=== PATIENT | male | born 1970 | race African-American/Black ===

== ENCOUNTER 2019-06-16 10:58 | Emergency (ER) | payer OTHER ==
[2019-06-16 11:09] VITALS: BP 162/93; PULSE 94; RESP 18; TEMP 98.4
--- NOTE | 2019-06-16 11:22 | ED ---
General Adult HPI - General Chief complaint: Skin/Abscess/Foreign Body Stated complaint: bump on rt side Time Seen by Provider: 06/16/19 11:11 Source: patient, RN notes reviewed, old records reviewed Mode of arrival: ambulatory Limitations: no limitations - History of Present Illness Initial comments: 49-year-old male presenting for evaluation of pain and swelling in his right side and flank. He first noticed some pain approximately 2 days ago. He noticed some redness and bumps associated with the pain. He denies any fever or chills. He denies chest pain or dyspnea. He denies hematuria. No other symptoms reported. He states the pain is moderate. No chronic medical conditions. - Related Data Previous Rx's Medication Instructions Recorded Ibuprofen [Motrin] 600 mg PO Q8HR PRN #24 tab 06/16/19 valACYclovir HCL [Valtrex] 1,000 mg PO Q8HR #21 tab 06/16/19 Allergies Allergy/AdvReac Type Severity Reaction Status Date / Time No Known Allergies Allergy Verified 06/16/19 11:08 Review of Systems ROS Statement: Those systems with pertinent positive or pertinent negative responses have been documented in the HPI. ROS Other: All systems not noted in ROS Statement are negative. Past Medical History Past Medical History: No Reported History Additional Past Surgical History / Comment(s): nasal Past Psychological History: No Psychological Hx Reported Smoking Status: Never smoker Past Alcohol Use History: Occasional Past Drug Use History: Marijuana General Exam Limitations: no limitations General appearance: alert, in no apparent distress Head exam: Present: atraumatic, normocephalic Eye exam: Present: normal appearance, PERRL Neck exam: Present: normal inspection Respiratory exam: Present: normal lung sounds bilaterally. Absent: respiratory distress, wheezes Cardiovascular Exam: Present: regular rate, normal rhythm GI/Abdominal exam: Present: soft. Absent: distended, tenderness Back exam: Present: other (Herpetic rash dermatomal distribution, right flank onto the anterior abdominal wall on the right side only. There are 3 distinct clusters of herpetic lesions.) Neurological exam: Present: alert, oriented X3 Psychiatric exam: Present: normal affect, normal mood Skin exam: Present: vesicles, other (Herpetic lesion, right flank To Right Anterior Abdominal Wall Consistent with Herpes Zoster) Course Vital Signs 06/16/19 11:06 Temperature 98.4 F Pulse Rate 94 Respiratory 18 Rate Blood Pressure 162/93 O2 Sat by Pulse 98 Oximetry Medical Decision Making - Medical Decision Making 49-year-old male presenting with 2 days of redness, pain in the right flank and lateral abdominal wall. He has rash consistent with herpetic zoster. He is prescribed Motrin and valacyclovir. He will return with any worsening or changing symptoms, follow-up with primary care physician. Disposition Clinical Impression: Herpes zoster Disposition: HOME SELF-CARE Condition: Good Instructions (If sedation given, give patient instructions): Shingles (ED) Prescriptions: Ibuprofen [Motrin] 600 mg PO Q8HR PRN #24 tab PRN Reason: Pain valACYclovir HCL [Valtrex] 1,000 mg PO Q8HR #21 tab Is patient prescribed a controlled substance at d/c from ED?: No Referrals: None,Stated [Primary Care Provider] - 1-2 days Gurinder Cabello [STAFF PHYSICIAN] - 1-2 days Time of Disposition: 11:21
== END 2019-06-16 11:51 | disposition home or self-care (01) ==
LOC: EC 10:58
DX: B02.9 Zoster without complications (principal)
CPT/HCPCS: 99283

== ENCOUNTER 2019-11-23 11:17 | Emergency (ER) | payer OTHER ==
[2019-11-23 11:33] VITALS: BP 173/91; PULSE 60; RESP 18; TEMP 98.4
[2019-11-23] MEDS ORDERED: FLUORESCEIN STRIPS 1 MG STRIP LEFT EYE ONE (11:42)
[2019-11-23] MEDS ORDERED: PROPARACAINE 0.5% OPHTH DROPS 15 ML BTL LEFT EYE STA (11:42)
--- NOTE | 2019-11-23 11:48 | ED ---
ENT HPI - General Chief complaint: ENT Stated complaint: lt eye irritation Time Seen by Provider: 11/23/19 11:35 Source: patient Mode of arrival: ambulatory Limitations: no limitations - History of Present Illness Initial comments: 49-year-old male presenting today for chief complaint of left eye irritation. Patient states that the he felt like he had an eyelash poking the outer corner of his left eye. Denies eye redness headaches nausea vomiting. Patient denies any section photophobia. He states he noticed a slight raised area of the outer left lower lid. Patient appears well nontoxic in no acute distress. Wears glasses. - Related Data Previous Rx's Medication Instructions Recorded Ibuprofen [Motrin] 600 mg PO Q8HR PRN #24 tab 06/16/19 valACYclovir HCL [Valtrex] 1,000 mg PO Q8HR #21 tab 06/16/19 Erythromycin Ophth Oint [Romycin 1 applic LEFT EYE QID 5 Days #1 11/23/19 Ophth Oint] tube Allergies Allergy/AdvReac Type Severity Reaction Status Date / Time No Known Allergies Allergy Verified 11/23/19 11:33 Review of Systems ROS Statement: Those systems with pertinent positive or pertinent negative responses have been documented in the HPI. ROS Other: All systems not noted in ROS Statement are negative. Past Medical History Past Medical History: No Reported History Additional Past Surgical History / Comment(s): nasal Past Psychological History: No Psychological Hx Reported Smoking Status: Never smoker Past Alcohol Use History: Rare Past Drug Use History: Marijuana General Exam - General Exam Comments Initial Comments: General: The patient is awake and alert, in no distress Eye: +3 mm pupils are equal, round and reactive to light, extra-ocular movements are intact. No nystagmus. There is normal conjunctiva bilaterally. No signs of icterus. There is raised red lesion left outer lower lid. No eyelashes appear inverted. THere is no photophobia. Ears, nose, mouth and throat: There are moist mucous membranes and no oral lesions. Musculoskeletal: Normal ROM, no tenderness. Strength 5/5. Sensation intact. Radial pulses equal bilaterally 2+. Neurological: A&O x 3. CN II-XII intact, There are no obvious motor or sensory deficits. Coordination appears grossly intact. Speech is normal. Skin: Skin is warm and dry and no rashes or lesions are noted. Psychiatric: Cooperative, appropriate mood & affect, normal judgment. Limitations: no limitations Course Vital Signs 11/23/19 11:30 Temperature 98.4 F Pulse Rate 60 Respiratory 18 Rate Blood Pressure 173/91 O2 Sat by Pulse 98 Oximetry Medical Decision Making - Medical Decision Making 49yo male presenting for cc of left lid discomfort. No fluorescein uptake no inverted eye lashes. I feel this is a hordeolum there is no evidence of a cellulitic process at this time. Patient will be discharged with topical antibiotics warm compresses and he is to follow-up with primary care provider if thing symptoms worsen he is to return to the emergency department Disposition Clinical Impression: Hordeolum Disposition: HOME SELF-CARE Condition: Good Instructions (If sedation given, give patient instructions): Tal (ED) Additional Instructions: Please use medication as discussed. Please follow-up with PCP in 1-2 days. Please return to emergency room if the symptoms increase or worsen or for any other concerns. Prescriptions: Erythromycin Ophth Oint [Romycin Ophth Oint] 1 applic LEFT EYE QID 5 Days #1 tube Is patient prescribed a controlled substance at d/c from ED?: No Referrals: None,Stated [Primary Care Provider] - 1-2 days Tony Weaver MD [STAFF PHYSICIAN] - 1-2 days Time of Disposition: 11:47
== END 2019-11-23 12:05 | disposition home or self-care (01) ==
LOC: EC 11:17
DX: H00.015 Hordeolum externum left lower eyelid (principal)
CPT/HCPCS: 99283

== ENCOUNTER 2021-05-21 10:48 | Emergency (ER) | payer OTHER ==
[2021-05-21 10:56] VITALS: RESP 18; TEMP 97.4
--- NOTE | 2021-05-21 11:13 | ED ---
Abdominal Pain HPI - General Chief Complaint: Abdominal Pain Stated Complaint: Abd Pain Time Seen by Provider: 05/21/21 11:06 Source: patient Mode of arrival: ambulatory Limitations: no limitations - History of Present Illness Initial Comments: Patient is a 21-year-old male who presents to the emergency department with the chief complaint of abdominal pain. Patient states he had frozen lives in [facility] yesterday and after experience generalized abdominal pain with one episode of vomiting and one episode of dry heaving. Patient reports he feels much better now with occasional stomach cramping. He has not vomited today. He is not nauseous. Patient presents for a work note so he go back to work today. Patient has no other concerns at this time including fever, chills, headache, shortness of breath, cough, chest pain, diarrhea, and burning with urination. - Related Data Previous Rx's Medication Instructions Recorded Ibuprofen [Motrin] 600 mg PO Q8HR PRN #24 tab 06/16/19 valACYclovir HCL [Valtrex] 1,000 mg PO Q8HR #21 tab 06/16/19 Erythromycin Ophth Oint [Romycin 1 applic LEFT EYE QID 5 Days #1 11/23/19 Ophth Oint] tube Ondansetron Odt [Zofran Odt] 4 mg PO Q8HR PRN #9 tab 05/21/21 Allergies Allergy/AdvReac Type Severity Reaction Status Date / Time No Known Allergies Allergy Verified 05/21/21 10:56 Review of Systems ROS Statement: Those systems with pertinent positive or pertinent negative responses have been documented in the HPI. ROS Other: All systems not noted in ROS Statement are negative. Past Medical History Past Medical History: No Reported History Additional Past Surgical History / Comment(s): nasal Past Psychological History: No Psychological Hx Reported Smoking Status: Never smoker Past Alcohol Use History: Rare Past Drug Use History: Marijuana General Exam Limitations: no limitations General appearance: alert, in no apparent distress Head exam: Present: atraumatic, normocephalic, normal inspection Eye exam: Present: normal appearance, PERRL, EOMI. Absent: scleral icterus, conjunctival injection, periorbital swelling ENT exam: Present: normal exam, mucous membranes moist Respiratory exam: Present: normal lung sounds bilaterally. Absent: respiratory distress, wheezes, rales, rhonchi, stridor Cardiovascular Exam: Present: regular rate, normal rhythm, normal heart sounds. Absent: systolic murmur, diastolic murmur, rubs, gallop, clicks GI/Abdominal exam: Present: soft, normal bowel sounds. Absent: distended, tenderness, guarding, rebound, rigid Back exam: Present: normal inspection. Absent: CVA tenderness (R), CVA tenderness (L) Neurological exam: Present: alert, oriented X3, CN II-XII intact Psychiatric exam: Present: normal affect, normal mood Skin exam: Present: warm, dry, intact, normal color. Absent: rash Course Vital Signs 05/21/21 10:51 Temperature 97.4 F L Pulse Rate 105 H Respiratory 18 Rate Blood Pressure 161/96 O2 Sat by Pulse 99 Oximetry Medical Decision Making - Medical Decision Making This is a 51-year-old who is seeking a work note so he can return to work today. Patient had abdominal pain with one episode of vomiting yesterday but feels much better today. He is afebrile. The abdomen is soft and nontender. At this time due to patient's very minimal symptoms, lack of fever, and normal abdominal exam, laboratory studies and imaging are not necessary. Patient and I discussed this and he confirms that he is here to make sure he can return to work. I did give him a work note which medically cleared him today. I prescribed him Zofran for intermittent nausea. Return parameters discussed. Patient verbalizes understanding and is agreeable to plan. Dr. Callahan is my attending. Disposition Clinical Impression: Nausea and vomiting, Abdominal pain Disposition: HOME SELF-CARE Condition: Good Instructions (If sedation given, give patient instructions): Abdominal Pain (ED) Additional Instructions: Please take Zofran as directed. Follow-up with primary care provider in one to 2 days. Return to the emergency department if you experience new, concerning, or worsening symptoms. Prescriptions: Ondansetron Odt [Zofran Odt] 4 mg PO Q8HR PRN #9 tab PRN Reason: Nausea Is patient prescribed a controlled substance at d/c from ED?: No Referrals: None,Stated [Primary Care Provider] - 1-2 days Time of Disposition: 11:13
[2021-05-21 11:41] VITALS: BP 148/99; PULSE 78
== END 2021-05-21 11:40 | disposition home or self-care (01) ==
LOC: EC 10:48
DX: R11.2 Nausea with vomiting, unspecified (principal); R10.84 Generalized abdominal pain
CPT/HCPCS: 99283

== ENCOUNTER 2023-03-04 18:28 | Emergency (ER) | payer OTHER ==
[2023-03-04 19:16] VITALS: BP 149/97; PULSE 118; RESP 18; TEMP 99.2
[2023-03-04] MEDS ORDERED: ACETAMINOPHEN TAB 325 MG TAB PO STA (20:21)
--- NOTE | 2023-03-04 20:24 | ED ---
Fever HPI - General Source: patient, family, RN notes reviewed Mode of arrival: ambulatory Limitations: no limitations <Lakshmi Madden - Last Filed: 03/04/23 20:23> - General Source: RN notes reviewed, old records reviewed Mode of arrival: ambulatory Limitations: no limitations - History of Present Illness MD Complaint: fever, weakness, other (Cough) -: hour(s) Associated Symptoms: chills, myalgias, chest pain Treatments Prior to Arrival: none <Franco Bird - Last Filed: 03/12/23 16:18> - General Chief Complaint: Fever Stated Complaint: kidney issues Time Seen by Provider: 03/04/23 20:23 - History of Present Illness Initial Comments: Patient is a 52-year-old male presented ER with chief complaint of fever. Patient states he started having feeling well on Sunday. Patient is endorsing nausea and vomiting. He is also reporting back pain. No history of kidney stones. (Lakshmi Madden) This is a 52-year-old male to the ER today for evaluation fevers nausea vomiting some back pain occasional cough but no other complaints, no travel history sick contacts. (Franco Bird) - Related Data Previous Rx's Medication Instructions Recorded Benzonatate [Tessalon Perles] 100 mg PO TID PRN #15 capsule 03/05/23 Ondansetron Odt [Zofran ODT] 4 mg PO Q8HR PRN #10 tab 03/05/23 Allergies Allergy/AdvReac Type Severity Reaction Status Date / Time No Known Allergies Allergy Verified 03/08/23 20:34 Review of Systems ROS Other: All systems not noted in ROS Statement are negative. <Lakshmi Madden - Last Filed: 03/04/23 20:23> ROS Other: All systems not noted in ROS Statement are negative. <Franco Bird - Last Filed: 03/12/23 16:18> ROS Statement: Those systems with pertinent positive or pertinent negative responses have been documented in the HPI. Past Medical History Past Medical History: No Reported History Additional Past Surgical History / Comment(s): nasal Past Psychological History: No Psychological Hx Reported Smoking Status: Never smoker Past Alcohol Use History: Rare Past Drug Use History: Marijuana <Lakshmi Madden - Last Filed: 03/04/23 20:23> General Exam Limitations: no limitations <Lakshmi Madden - Last Filed: 03/04/23 20:23> General appearance: alert, in no apparent distress Head exam: Present: atraumatic, normocephalic, normal inspection Eye exam: Present: normal appearance, PERRL, EOMI. Absent: scleral icterus, conjunctival injection, periorbital swelling ENT exam: Present: normal exam, mucous membranes moist Neck exam: Present: normal inspection. Absent: tenderness, meningismus, lymphadenopathy Respiratory exam: Present: normal lung sounds bilaterally. Absent: respiratory distress, wheezes, rales, rhonchi, stridor Cardiovascular Exam: Present: regular rate, normal rhythm, normal heart sounds. Absent: systolic murmur, diastolic murmur, rubs, gallop, clicks GI/Abdominal exam: Present: soft, normal bowel sounds. Absent: distended, tenderness, guarding, rebound, rigid Extremities exam: Present: normal inspection, full ROM, normal capillary refill. Absent: tenderness, pedal edema, joint swelling, calf tenderness Back exam: Present: normal inspection Neurological exam: Present: alert, oriented X3, CN II-XII intact Psychiatric exam: Present: normal affect, normal mood Skin exam: Present: warm, dry, intact, normal color. Absent: rash <Franco Bird - Last Filed: 03/12/23 16:18> - General Exam Comments Initial Comments: Visual Physical Exam Vital signs reviewed General: Well-appearing, nontoxic, no acute distress. Head: Normocephalic, atraumatic Eyes: PERRLA, EOMI ENT: Airway patent Chest: Nonlabored breathing Skin: No visual rash, normal skin tone Neuro: Alert and oriented 3 Musculoskeletal: No gross abnormalities (Lakshmi Madden) Course <Franco Bird - Last Filed: 03/12/23 16:18> Vital Signs 03/04/23 18:52 Temperature 99.2 F Pulse Rate 118 H Respiratory 18 Rate Blood Pressure 149/97 O2 Sat by Pulse 98 Oximetry - Reevaluation(s) Reevaluation #1: Medical record is reviewed (Franco Bird) Reevaluation #2: Patient symptoms are improved (Franco Bird) Reevaluation #3: Patient informed results and questions answered (Franco Bird) Reevaluation #4: Was pt. sent in by a medical professional or institution ([facility], [employer], urgent care, hospital, or fpc...) When possible be specific @ -no Did you speak to anyone other than the patient for history (EMS, parent, family, police, friend...)? What history was obtained from this source @ -no Did you review nursing and triage notes (agree or disagree)? Why? @ -agree Are old charts reviewed (outside hosp., previous admission, EMS record, old EKG, old radiological studies, urgent care reports/EKG's, fpc records)? Report findings @ -yes Differential Diagnosis (chest pain, altered mental status, abdominal pain women, abdominal pain men, vaginal bleeding, weakness, fever, dyspnea, syncope, headache, dizziness, GI bleed, back pain, seizure, CVA, palpatations, mental health, musculoskeletal)? @ -prior EKG interpreted by me (3pts min.). @ -no X-rays interpreted by me (1pt min.). @ -yes negative for acute disease CT interpreted by me (1pt min.). @ -no U/S interpreted by me (1pt. min.). @ -no What testing was considered but not performed or refused? (CT, X-rays, U/S, labs)? Why? @ -none What meds were considered but not given or refused? Why? @ -none Did you discuss the management of the patient with other professionals (professionals i.e. [facility], [employer], lab, RT, psych nurse, high school social studies teacher, spike maker, teacher, community cultural development officer, casework supervisor)? Give summary @ -no Was smoking cessation discussed for >3mins.? @ -no Were there social determinants of health that impacted care today? How? (Homelessness, low income, unemployed, alcoholism, drug addiction, transportation, low edu. Level, literacy, decrease access to med. care, retirement, rehab)? @ -none Was there de-escalation of care discussed even if they declined (Discuss DNR or withdrawal of care, Hospice)? DNR status @ -no What co-morbidities impacted this encounter? (DM, HTN, Smoking, COPD, CAD, Cancer, CVA, ARF, Chemo, Hep., AIDS, mental health diagnosis, sleep apnea, morbid obesity)? @ -none Was patient admitted / discharged? Hospital course, mention meds given and route, prescriptions, significant lab abnormalities, going to OR and other pertinent info. @ - 52 male to the emergency department for evaluation of significant chest pain back pain occasional cough. Patient does have RSV. No acute findings feels well can be discharged home Discharge Was critical care preformed (if so, how long)? @ -no Undiagnosed new problem with uncertain prognosis? @ -no Drug Therapy requiring intensive monitoring for toxicity (Heparin, Nitro, Insulin, Cardizem)? @ -no Were any procedures done? @ -no Diagnosis/symptom? @ -Chest pain RSV fever Acute, or Chronic, or Acute on Chronic? @ -Acute Uncomplicated (without systemic symptoms) or Complicated (systemic symptoms)? @ -Complicated Side effects of treatment? @ -no Exacerbation, Progression, or Severe Exacerbation? @ -exacerbation Poses a threat to life or bodily function? How? (Chest pain, [place], [place], pneumonia, PE, COPD, DKA, ARF, appy, cholecystitis, CVA, Diverticulitis, Homicidal, Suicid al, threat to staff... and all critical care pts) @ -no (Franco Bird) Reevaluation #5: Differential Fever: Pneumonia, viral URI, endocarditis, myocarditis, pericarditis, otitis, sinusitis, peritonsillar Abscess, retropharyngeal Abscess, epiglottitis, peritonitis, appendicitis, [place] cystitis, diverticulitis, hepatitis, colitis, UTI, PID, TOA, pyelonephritis, prostatitis, epididymitis, meningitis, encephalitis, pulmonary embolism, CVA, thyroid storm, pancreatitis, adrenal crisis, cavernous sinus thrombosis, this is not meant to be an all-inclusive list. (Franco Bird) Medical Decision Making <Lakshmi Madden - Last Filed: 03/04/23 20:23> - Lab Data Result diagrams: 03/04/23 21:26 03/04/23 21:26 - Radiology Data Radiology results: report reviewed (Chest x-rays negative for acute disease), image reviewed <Franco Bird - Last Filed: 03/12/23 16:18> - Medical Decision Making I performed the quick note portion of the exam. Electronically signed by Lakshmi Madden PA-C (Lakshmi Madden) 52 male to the emergency department for evaluation of significant chest pain back pain occasional cough. Patient does have RSV. No acute findings feels well can be discharged home (Franco Bird) - Lab Data Lab Results 03/04/23 03/04/23 03/04/23 Range/Units 21:26 21:26 21:26 WBC 15.9 H (3.8-10.6) k/uL RBC 5.69 (4.30-5.90) m/uL Hgb 18.0 H (13.0-17.5) gm/dL Hct 51.1 (39.0-53.0) % MCV 89.8 (80.0-100.0) fL MCH 31.7 (25.0-35.0) pg MCHC 35.3 (31.0-37.0) g/dL RDW 12.2 (11.5-15.5) % Plt Count 252 (150-450) k/uL MPV 10.0 Sodium 141 (137-145) mmol/L Potassium 3.7 (3.5-5.1) mmol/L Chloride 97 L (98-107) mmol/L Carbon Dioxide 26 (22-30) mmol/L Anion Gap 18 mmol/L BUN 34 H (9-20) mg/dL Creatinine 1.58 H (0.66-1.25) mg/dL Est GFR (CKD-EPI)AfAm 58 (>60 ml/min/1.73 sqM) Est GFR (CKD-EPI)NonAf 50 (>60 ml/min/1.73 sqM) Glucose 146 H (74-99) mg/dL Calcium 10.0 (8.4-10.2) mg/dL Total Bilirubin 1.7 H (0.2-1.3) mg/dL AST 36 (17-59) U/L ALT 30 (4-49) U/L Alkaline Phosphatase 103 (38-126) U/L Total Protein 10.0 H (6.3-8.2) g/dL Albumin 5.3 H (3.5-5.0) g/dL Influenza Type A (PCR) Not Detected (Not Detectd) Influenza Type B (PCR) Not Detected (Not Detectd) RSV (PCR) Detected A (Not Detectd) SARS-CoV-2 (PCR) Not Detected (Not Detectd) Disposition <Lakshmi Madden - Last Filed: 03/04/23 20:23> Is patient prescribed a controlled substance at d/c from ED?: No Time of Disposition: 00:35 <Franco Bird - Last Filed: 03/12/23 16:18> Clinical Impression: Viral infection, RSV (acute bronchiolitis due to respiratory syncytial virus), Fever, Nausea & vomiting Disposition: HOME SELF-CARE Condition: Good Instructions (If sedation given, give patient instructions): Respiratory Syncytial Virus (ED), Fever in Adults (ED) Prescriptions: Benzonatate [Tessalon Perles] 100 mg PO TID PRN #15 capsule PRN Reason: Cough Ondansetron Odt [Zofran ODT] 4 mg PO Q8HR PRN #10 tab PRN Reason: nausea/vomiting Referrals: None,Stated [Primary Care Provider] - 1-2 days
--- NOTE | 2023-03-04 21:09 | XR ---
EXAMINATION TYPE: XR chest 2V DATE OF EXAM: 03/04/2023 COMPARISON: None INDICATION: Cough TECHNIQUE: Frontal and lateral views of the chest are obtained. FINDINGS: The heart size is normal. The pulmonary vasculature is normal. The lungs are clear. IMPRESSION: 1. No acute pulmonary process.
[2023-03-04 21:42] LABS: HCT 51.1 % (39.0-53.0); MCH 31.7 pg (25.0-35.0); MCHC 35.3 g/dL (31.0-37.0); MCV 89.8 fL (80.0-100.0); Platelet Count 252 k/uL (150-450); RBC 5.69 m/uL (4.30-5.90); RDW 12.2 % (11.5-15.5); WBC 15.9 k/uL (3.8-10.6)
[2023-03-04 22:03] LABS: ALT 30 U/L (4-49); AST 36 U/L (17-59); African American GFR (CKD) 58 (>60 ml/min/1.73 sqM); Albumin 5.3 g/dL (3.5-5.0); Alkaline Phosphatase 103 U/L (38-126); Anion Gap 18 mmol/L; Blood Urea Nitrogen 34 mg/dL (9-20); Carbon Dioxide 26 mmol/L (22-30); Chloride 97 mmol/L (98-107); Glucose 146 mg/dL (74-99); Non-African American GFR(CKD) 50 (>60 ml/min/1.73 sqM); Potassium 3.7 mmol/L (3.5-5.1); Sodium 141 mmol/L (137-145); Total Bilirubin 1.7 mg/dL (0.2-1.3)
[2023-03-05] MEDS ORDERED: IBUPROFEN 600 MG STARTER PACK 4 TAB BTL PO STA (00:42)
[2023-03-05] MEDS ORDERED: ONDANSETRON 4 MG ODT STARTER PACK 2 TAB BTL PO STA (00:42)
[2023-03-05] MEDS ORDERED: IBUPROFEN 600 MG TAB PO STA (00:42)
[2023-03-05] MEDS ORDERED: dexAMETHasone 2 MG TAB PO STA (00:42)
[2023-03-05] MEDS ORDERED: BENZONATATE 100 MG CAP PO STA (00:42)
[2023-03-05] MEDS ORDERED: ONDANSETRON ODT 4 MG TAB PO STA (00:42)
== END 2023-03-05 01:13 | disposition home or self-care (01) ==
LOC: EC 18:28
DX: J21.0 Acute bronchiolitis due to respiratory syncytial virus (principal); F12.90 Cannabis use, unspecified, uncomplicated; Z20.822 Contact with and (suspected) exposure to COVID-19
CPT/HCPCS: 36415; 80053; 85027; 87636; 71046; 99284; J8540; S0119

== ENCOUNTER 2023-03-08 20:22 | Emergency (ER) | payer OTHER ==
[2023-03-08 20:53] VITALS: BP 186/98; PULSE 79; RESP 18; TEMP 98.4
--- NOTE | 2023-03-08 21:16 | XR ---
EXAMINATION TYPE: XR chest 2V DATE OF EXAM: 03/08/2023 9:12 PM CLINICAL INDICATION:Male, 52 years old with history of R/O PNA; [facility] COMPARISON: Chest radiograph 03/04/2023 TECHNIQUE: XR chest 2V Frontal and lateral views of the chest. FINDINGS: Lungs/Pleura: There is no evidence of pleural effusion, focal consolidation, or pneumothorax. Pulmonary vascularity: Unremarkable. Heart/mediastinum: Cardiomediastinal silhouette is unremarkable. Musculoskeletal: No acute osseous pathology. IMPRESSION: No acute cardiopulmonary disease/process.
[2023-03-08] MEDS ORDERED: SODIUM CHLORIDE 0.9% 1,000 ML IV STA (21:23)
[2023-03-08 22:21] LABS: Basophils # (A) 0.1 k/uL (0-0.2); Basophils % (A) 1 %; Eosinophils # (A) 0.2 k/uL (0-0.7); Eosinophils % (A) 2 %; HGB 15.1 gm/dL (13.0-17.5); Lymphocytes # (A) 2.4 k/uL (1.0-4.8); Lymphocytes % (A) 23 %; MCH 31.1 pg (25.0-35.0); MCHC 34.4 g/dL (31.0-37.0); MCV 90.4 fL (80.0-100.0); Mean Platelet Volume 10.1; Monocytes # (A) 0.8 k/uL (0-1.0); Monocytes % (A) 8 %; Neutrophils # (A) 6.6 k/uL (1.3-7.7); Neutrophils % (A) 64 %; Platelet Count 272 k/uL (150-450); RBC 4.87 m/uL (4.30-5.90); RDW 12.4 % (11.5-15.5); WBC 10.3 k/uL (3.8-10.6)
--- NOTE | 2023-03-08 22:23 | ED ---
General Adult HPI - General Chief complaint: Upper Respiratory Infection Stated complaint: Revisit - RSV, Dizziness Time Seen by Provider: 03/08/23 21:01 Source: patient Mode of arrival: ambulatory Limitations: no limitations - History of Present Illness Initial comments: 52-year-old male presenting to the ED with a chief complaint of near syncope. Patient notes had RSV 2 weeks ago. At this point, states symptoms have mostly resolved however today notes 2 episodes where he almost passed out. States that today after standing up too quickly felt as if he was going to pass out. States he sat down and this shortly relieved. Chest pain or shortness of breath. No other complaints. - Related Data Previous Rx's Medication Instructions Recorded Benzonatate [Tessalon Perles] 100 mg PO TID PRN #15 capsule 03/05/23 Ondansetron Odt [Zofran ODT] 4 mg PO Q8HR PRN #10 tab 03/05/23 Allergies Allergy/AdvReac Type Severity Reaction Status Date / Time No Known Allergies Allergy Verified 03/08/23 20:34 Review of Systems ROS Statement: Those systems with pertinent positive or pertinent negative responses have been documented in the HPI. ROS Other: All systems not noted in ROS Statement are negative. Past Medical History Past Medical History: No Reported History Additional Past Surgical History / Comment(s): nasal Past Psychological History: No Psychological Hx Reported Smoking Status: Never smoker Past Alcohol Use History: Rare Past Drug Use History: Marijuana General Exam Limitations: no limitations General appearance: alert, in no apparent distress Eye exam: Present: normal appearance Neck exam: Present: normal inspection Respiratory exam: Present: normal lung sounds bilaterally Cardiovascular Exam: Present: regular rate, normal rhythm GI/Abdominal exam: Present: soft Neurological exam: Present: alert, oriented X3 Skin exam: Present: warm, dry Course Vital Signs 03/08/23 20:31 Temperature 98.4 F Pulse Rate 79 Respiratory 18 Rate Blood Pressure 186/98 O2 Sat by Pulse 98 Oximetry Medical Decision Making - Medical Decision Making Was pt. sent in by a medical professional or institution (Dr. PA, MEDICAL RECORDS RECEPTIONIST, urgent care, hospital, or senior living...) When possible be specific @ -No Did you speak to anyone other than the patient for history (EMS, parent, family, police, friend...)? What history was obtained from this source @ -No Did you review nursing and triage notes (agree or disagree)? Why? @ -I reviewed and agree with nursing and triage notes Were old charts reviewed (outside hosp., previous admission, EMS record, old EKG, old radiological studies, urgent care reports/EKG's, senior living records)? Report findings @ -No old charts were reviewed Differential Diagnosis (chest pain, altered mental status, abdominal pain women, abdominal pain men, vaginal bleeding, weakness, fever, dyspnea, syncope, headache, dizziness, GI bleed, back pain, seizure, CVA, palpatations, mental health, musculoskeletal)? @ -Differential Dizziness: Benign paroxysmal positional Vertigo, Menieres disease, otitis media, acoustic neuroma, vertebrobasilar insufficiency, cerebellar stroke, encephalitis, hypovolemic, arrhythmia, coronary artery syndrome, anemia, this is not meant to be an all-inclusive list EKG interpreted by me (3pts min.). @ -As above X-rays interpreted by me (1pt min.). @ -Chest x-ray interpreted by me show no evidence of acute finding. CT interpreted by me (1pt min.). @ -None done U/S interpreted by me (1pt. min.). @ -None done What testing was considered but not performed or refused? (CT, X-rays, U/S, labs)? Why? @ -None What meds were considered but not given or refused? Why? @ -None Did you discuss the management of the patient with other professionals (professionals i.e. , PA, MEDICAL RECORDS RECEPTIONIST, lab, RT, psych nurse, certified social workers in health care, head field hockey coach, teacher, public affairs officer, disease case manager rn)? Give summary @ -No Was smoking cessation discussed for >3mins.? @ -No Was critical care preformed (if so, how long)? @ -No Were there social determinants of health that impacted care today? How? (Homelessness, low income, unemployed, alcoholism, drug addiction, transportation, low edu. Level, literacy, decrease access to med. care, chcf, rehab)? @ -No Was there de-escalation of care discussed even if they declined (Discuss DNR or withdrawal of care, Hospice)? DNR status @ -No What co-morbidities impacted this encounter? (DM, HTN, Smoking, COPD, CAD, Cancer, CVA, ARF, Chemo, Hep., AIDS, mental health diagnosis, sleep apnea, morbid obesity)? @ -None Was patient admitted / discharged? Hospital course, mention meds given and route, prescriptions, significant lab abnormalities, going to OR and other [facility] info. @ -Discharge 52-year-old male presenting to the ED with episodes of near-syncope today provoked by movement/activity. Laboratory studies reviewed. Lab studies including CBC, d-dimer, troponin, chemistry panel unremarkable. Orthostatics unremarkable. Vital signs stable afebrile. Discharged home in stable condition with instructions to follow-up with his PCP. Discussed return precautions with patient and family who verbalizes agreement. Undiagnosed new problem with uncertain prognosis? @ -No Drug Therapy requiring intensive monitoring for toxicity (Heparin, Nitro, Insulin, Cardizem)? @ -No Were any procedures done? @ -No Diagnosis/symptom? @ -Near-syncope Acute, or Chronic, or Acute on Chronic? @ -Acute Uncomplicated (without systemic symptoms) or Complicated (systemic symptoms)? @ -Uncomplicated Side effects of treatment? @ -No Exacerbation, Progression, or Severe Exacerbation? @ -No Poses a threat to life or bodily function? How? (Chest pain, [place], [place], pneumonia, PE, COPD, DKA, ARF, appy, cholecystitis, CVA, Diverticulitis, Homicidal, Suicidal, threat to staff... and all critical care pts) @ -No - Lab Data Result diagrams: 03/08/23 22:10 03/08/23 22:10 Lab Results 03/08/23 03/08/23 03/08/23 Range/Units 22:10 22:10 22:10 WBC 10.3 (3.8-10.6) k/uL RBC 4.87 (4.30-5.90) m/uL Hgb 15.1 (13.0-17.5) gm/dL Hct 44.0 (39.0-53.0) % MCV 90.4 (80.0-100.0) fL MCH 31.1 (25.0-35.0) pg MCHC 34.4 (31.0-37.0) g/dL RDW 12.4 (11.5-15.5) % Plt Count 272 (150-450) k/uL MPV 10.1 Neutrophils % 64 % Lymphocytes % 23 % Monocytes % 8 % Eosinophils % 2 % Basophils % 1 % Neutrophils # 6.6 (1.3-7.7) k/uL Lymphocytes # 2.4 (1.0-4.8) k/uL Monocytes # 0.8 (0-1.0) k/uL Eosinophils # 0.2 (0-0.7) k/uL Basophils # 0.1 (0-0.2) k/uL PT 11.2 (10.0-12.5) sec INR 1.0 (<1.2) APTT 24.8 (22.0-30.0) sec D-Dimer 0.19 (<0.60) mg/L FEU Sodium 142 (137-145) mmol/L Potassium 4.0 (3.5-5.1) mmol/L Chloride 106 (98-107) mmol/L Carbon Dioxide 25 (22-30) mmol/L Anion Gap 11 mmol/L BUN 19 (9-20) mg/dL Creatinine 0.88 (0.66-1.25) mg/dL Est GFR (CKD-EPI)AfAm >90 (>60 ml/min/1.73 sqM) Est GFR (CKD-EPI)NonAf >90 (>60 ml/min/1.73 sqM) Glucose 99 (74-99) mg/dL Calcium 8.9 (8.4-10.2) mg/dL Magnesium 2.3 (1.6-2.3) mg/dL Total Bilirubin 0.3 (0.2-1.3) mg/dL AST 27 (17-59) U/L ALT 30 (4-49) U/L Alkaline Phosphatase 87 (38-126) U/L Troponin I (0.000-0.034) ng/mL Total Protein 7.3 (6.3-8.2) g/dL Albumin 4.1 (3.5-5.0) g/dL 03/08/23 Range/Units 22:10 WBC (3.8-10.6) k/uL RBC (4.30-5.90) m/uL Hgb (13.0-17.5) gm/dL Hct (39.0-53.0) % MCV (80.0-100.0) fL MCH (25.0-35.0) pg MCHC (31.0-37.0) g/dL RDW (11.5-15.5) % Plt Count (150-450) k/uL MPV Neutrophils % % Lymphocytes % % Monocytes % % Eosinophils % % Basophils % % Neutrophils # (1.3-7.7) k/uL Lymphocytes # (1.0-4.8) k/uL Monocytes # (0-1.0) k/uL Eosinophils # (0-0.7) k/uL Basophils # (0-0.2) k/uL PT (10.0-12.5) sec INR (<1.2) APTT (22.0-30.0) sec D-Dimer (<0.60) mg/L FEU Sodium (137-145) mmol/L Potassium (3.5-5.1) mmol/L Chloride (98-107) mmol/L Carbon Dioxide (22-30) mmol/L Anion Gap mmol/L BUN (9-20) mg/dL Creatinine (0.66-1.25) mg/dL Est GFR (CKD-EPI)AfAm (>60 ml/min/1.73 sqM) Est GFR (CKD-EPI)NonAf (>60 ml/min/1.73 sqM) Glucose (74-99) mg/dL Calcium (8.4-10.2) mg/dL Magnesium (1.6-2.3) mg/dL Total Bilirubin (0.2-1.3) mg/dL AST (17-59) U/L ALT (4-49) U/L Alkaline Phosphatase (38-126) U/L Troponin I <0.012 (0.000-0.034) ng/mL Total Protein (6.3-8.2) g/dL Albumin (3.5-5.0) g/dL - EKG Data EKG Comments: EKG shows a sinus rhythm with nonspecific changes at 61 bpm. Interval at higher 57, QRS 115, QT/QTc 430/434. Disposition Clinical Impression: Near syncope Disposition: HOME SELF-CARE Condition: Good Additional Instructions: Please return to the Emergency Department if symptoms worsen or any other concerns. Please follow-up with her primary care provider. Is patient prescribed a controlled substance at d/c from ED?: No Referrals: None,Stated [Primary Care Provider] - 1-2 days Time of Disposition: 23:50
[2023-03-08 22:29] LABS: ALT 30 U/L (4-49); AST 27 U/L (17-59); African American GFR (CKD) >90 (>60 ml/min/1.73 sqM); Albumin 4.1 g/dL (3.5-5.0); Alkaline Phosphatase 87 U/L (38-126); Anion Gap 11 mmol/L; Blood Urea Nitrogen 19 mg/dL (9-20); Calcium 8.9 mg/dL (8.4-10.2); Carbon Dioxide 25 mmol/L (22-30); Chloride 106 mmol/L (98-107); Glucose 99 mg/dL (74-99); Magnesium 2.3 mg/dL (1.6-2.3); Non-African American GFR(CKD) >90 (>60 ml/min/1.73 sqM); Sodium 142 mmol/L (137-145); Total Bilirubin 0.3 mg/dL (0.2-1.3); Total Protein 7.3 g/dL (6.3-8.2)
[2023-03-08 22:38] LABS: Partial Thromboplastin Time 24.8 sec (22.0-30.0); Prothrombin Time 11.2 sec (10.0-12.5)
== END 2023-03-09 00:34 | disposition home or self-care (01) ==
LOC: EC 20:22
DX: R55 Syncope and collapse (principal); F12.90 Cannabis use, unspecified, uncomplicated; Z20.822 Contact with and (suspected) exposure to COVID-19
CPT/HCPCS: 36415; 71046; 80053; 83735; 84484; 85025; 85379; 85610; 85730; 93005; 96360; 96361; 99284

== ENCOUNTER 2023-07-18 10:25 | Emergency (ER) | payer OTHER ==
[2023-07-18 10:47] VITALS: RESP 18
--- NOTE | 2023-07-18 11:23 | ED ---
Back Pain HPI - General Chief Complaint: Back Pain/Injury Stated Complaint: Back Pain Time Seen by Provider: 07/18/23 11:20 Source: patient, RN notes reviewed Limitations: no limitations - History of Present Illness Initial Comments: 53-year-old male presented to ER with a chief complaint of right-sided rib/back pain. Patient reports one morning approximately 2 weeks ago while stretching he felt a pop on his right side. He states he has been taking [id number] Advil and symptoms seem to be improving especially over the holiday weekend. 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 He denies any chest pain or shortness of breath. He denies any bowel or bladder inc ontinence, saddle paresthesias, radiating pain. He denies any fevers, chills, abdominal pain, constipation/diarrhea, urinary complaints, history of kidney stones or peripheral edema. - Related Data Previous Rx's Medication Instructions Recorded Cyclobenzaprine [Flexeril] 5 mg PO HS PRN #15 tablet 07/18/23 Lidocaine 5% Patch [Lidoderm] 1 patch TOPICAL DAILY #30 patch 07/18/23 Allergies Allergy/AdvReac Type Severity Reaction Status Date / Time No Known Allergies Allergy Verified 07/18/23 11:40 Review of Systems ROS Statement: Those systems with pertinent positive or pertinent negative responses have been documented in the HPI. ROS Other: All systems not noted in ROS Statement are negative. Past Medical History Past Medical History: No Reported History Additional Past Surgical History / Comment(s): nasal Past Psychological History: No Psychological Hx Reported Smoking Status: Never smoker Past Alcohol Use History: Rare Past Drug Use History: Marijuana General Exam Limitations: no limitations General appearance: alert, in no apparent distress Head exam: Present: atraumatic, normocephalic, normal inspection Neck exam: Present: normal inspection. Absent: tenderness, meningismus, lymphadenopathy Respiratory exam: Present: normal lung sounds bilaterally. Absent: respiratory distress, wheezes, rales, rhonchi, stridor Cardiovascular Exam: Present: regular rate, normal rhythm, normal heart sounds. Absent: systolic murmur, diastolic murmur, rubs, gallop, clicks Extremities exam: Present: normal inspection, full ROM, normal capillary refill. Absent: tenderness, pedal edema, joint swelling, calf tenderness Back exam: Present: normal inspection, muscle spasm (Right-sided) Neurological exam: Present: alert, oriented X3, CN II-XII intact Skin exam: Present: warm, dry, intact, normal color. Absent: rash Course Vital Signs 07/18/23 07/18/23 07/18/23 10:26 11:50 12:59 Temperature 98.2 F 98.4 F 97.8 F Pulse Rate 90 58 L 57 L Respiratory 18 18 18 Rate Blood Pressure 163/94 156/95 152/91 O2 Sat by Pulse 97 99 97 Oximetry Medical Decision Making - Medical Decision Making Was pt. sent in by a medical professional or institution (, PA, CONSULTING GROUP ANALYST, urgent care, hospital, or prison...) When possible be specific @ -No Did you speak to anyone other than the patient for history (EMS, parent, family, police, friend...)? What history was obtained from this source @ -No Did you review nursing and triage notes (agree or disagree)? Why? @ -I reviewed and agree with nursing and triage notes Were old charts reviewed (outside hosp., previous admission, EMS record, old EKG, old radiological studies, urgent care reports/EKG's, prison records)? Report findings @ -No old charts were reviewed Differential Diagnosis (chest pain, altered mental status, abdominal pain women, abdominal pain men, vaginal bleeding, weakness, fever, dyspnea, syncope, headache, dizziness, GI bleed, back pain, seizure, CVA, palpatations, mental health, musculoskeletal)? @ -Differential Back Pain: Strain, zoster, cauda equina syndrome, epidural abscess, vertebral osteomyelitis, discitis, fracture, subluxation, disc herniation, DJD, spinal stenosis, dissection, AAA, pancreatitis, peptic ulcer disease, pyelonephritis, kidney stone, this is not meant to be an all-inclusive list. EKG interpreted by me (3pts min.). @ -None X-rays interpreted by me (1pt min.). @ -Right ribs AP chest x-ray interpreted me negative for acute process. Lumbar spine x-rays interpreted by me negative for acute process. CT interpreted by me (1pt min.). @ -None done U/S interpreted by me (1pt. min.). @ -None done What testing was considered but not performed or refused? (CT, X-rays, U/S, labs)? Why? @ -None What meds were considered but not given or refused? Why? @ -None Did you discuss the management of the patient with other professionals (professionals i.e. , PA, CONSULTING GROUP ANALYST, lab, RT, psych nurse, long term care social worker, customer operations manager, teacher, personal banking officer, pillowcase cleaner)? Give summary @ -No Was smoking cessation discussed for >3mins.? @ -No Was critical care preformed (if so, how long)? @ -No Were there social determinants of health that impacted care today? How? (Homelessness, low income, unemployed, alcoholism, drug addiction, transportation, low edu. Level, literacy, decrease access to med. care, chcf, rehab)? @ -No Was there de-escalation of care discussed even if they declined (Discuss DNR or withdrawal of care, Hospice)? DNR status @ -No What co-morbidities impacted this encounter? (DM, HTN, Smoking, COPD, CAD, Cancer, CVA, ARF, Chemo, Hep., AIDS, mental health diagnosis, sleep apnea, morbid obesity)? @ -None Was patient admitted / discharged? Hospital course, mention meds given and route, prescriptions, significant lab abnormalities, going to OR and other pertinent info. @ -Discharge. 53-year-old male presenting to the ER with a chief complaint of right-sided back pain. History and physical exam completed. Vitals stable. Patient no signs of acute distress and nontoxic-appearing. No red flag back pain symptoms indicative cauda equina syndrome. There is a muscle spasm on the right lumbar region. No focal bony tenderness. X-rays obtained negative for acute fractures or dislocations. Lidocaine patch placed in the ER with mild relief of symptoms. Upon reevaluation, patient resting comfortably in exam stretcher in no signs of acute distress. X-ray results discussed with patient, all questions answered. Advise close follow-up with orthopedics and PCP. Orthopedic referral given. Lidocaine patch and 5 mg Flexeril prescribed. Return parameters discussed. Patient discharged in stable condition. Patient verbally expressed understanding and agreement with care plan. Case discussed with ED attending, Dr. Saba. Undiagnosed new problem with uncertain prognosis? @ -No Drug Therapy requiring intensive monitoring for toxicity (Heparin, Nitro, Insul in, Cardizem)? @ -No Were any procedures done? @ -No Diagnosis/symptom? @ -Muscle spasm Acute, or Chronic, or Acute on Chronic? @ -Acute Uncomplicated (without systemic symptoms) or Complicated (systemic symptoms)? @ -Uncomplicated Side effects of treatment? @ -No Exacerbation, Progression, or Severe Exacerbation? @ -No Poses a threat to life or bodily function? How? (Chest pain, [place], [place], pneumonia, PE, COPD, DKA, ARF, appy, cholecystitis, CVA, Diverticulitis, Homicidal, Suicidal, threat to staff... and all critical care pts) @ -No - Radiology Data Radiology results: report reviewed, image reviewed Disposition Clinical Impression: Muscle spasm Disposition: HOME SELF-CARE Condition: Stable Instructions (If sedation given, give patient instructions): Muscle Spasm (ED) Additional Instructions: Please follow-up with PCP in the next 1 to 2 days. If symptoms persist follow- up with orthopedics, referral given. Return to the ER for any new or worsening concerns. Prescriptions: Cyclobenzaprine [Flexeril] 5 mg PO HS PRN #15 tablet PRN Reason: Muscle Spasm Lidocaine 5% Patch [Lidoderm] 1 patch TOPICAL DAILY #30 patch Is patient prescribed a controlled substance at d/c from ED?: No Referrals: None,Stated [Primary Care Provider] - 1-2 days Neto Morales MD [STAFF PHYSICIAN] - 1-2 days Forms: Area PCPs Time of Disposition: 12:35
--- NOTE | 2023-07-18 11:39 | XR ---
EXAM TYPE: LUMBAR SPINE X RAY SERIES COMPARISON: NONE HISTORY: Pain TECHNIQUE: 3 views are submitted. FINDINGS: Alignment is anatomic. The pedicles are intact. The transverse processes are intact. There is no s pondylolisthesis. There is spurring involving the L3 and L4 anteriorly. Mild facet arthropathy L4-5 and L5-S1. IMPRESSION: 1. Mild facet arthropathy L4-5 and L5-S1.
--- NOTE | 2023-07-18 11:43 | XR ---
EXAMINATION TYPE: XR ribs RT w pa chest xray DATE OF EXAM: 07/18/2023 COMPARISON: 03/08/2023 TECHNIQUE: PA view of the chest and 4 views right ribs submitted. HISTORY: Right rib pain FINDINGS: The lungs are clear and there is no pneumothorax, pleural effusion, or focal pneumonia. Heart size normal and no overt failure. Osseous structures demonstrate hypertrophic and degenerative changes of the spine. Ectasia of the aorta. No acute displaced rib fracture. IMPRESSION: 1. No acute displaced rib fracture.
[2023-07-18] MEDS: LIDOCAINE 4% PATCH TOPICAL ONE (11:52)
[2023-07-18 13:33] VITALS: BP 152/91; PULSE 57; TEMP 97.8
== END 2023-07-18 12:59 | disposition home or self-care (01) ==
LOC: EC 10:25
DX: M62.830 Muscle spasm of back (principal)
CPT/HCPCS: 72100; 99283

== ENCOUNTER 2023-10-25 12:14 | Emergency (ER) | payer OTHER ==
[2023-10-25 12:18] VITALS: RESP 18
--- NOTE | 2023-10-25 12:31 | ED ---
Lower Extremity Injury HPI - General Chief Complaint: Extremity Injury, Lower Stated Complaint: L knee pain Time Seen by Provider: 10/25/23 12:29 Source: patient, RN notes reviewed Mode of arrival: ambulatory Limitations: no limitations - History of Present Illness Initial Comments: 53-year-old male presented to ER with a chief complaint of left knee pain. Patient states approximately 1 month ago while at work he pivoted to move a part and felt a pop in his knee. He states since and he has been experiencing extreme pain to his left knee and it has been "giving out". He has not taken anything for pain at this time. He does state medial knee is edematous and occasionally erythematous. Denies any new injuries or traumas. Denies any paresthesias. Denies any weakness. No other injuries or complaints. - Related Data Previous Rx's Medication Instructions Recorded Cyclobenzaprine [Flexeril] 5 mg PO HS PRN #15 tablet 07/18/23 Lidocaine 5% Patch [Lidoderm] 1 patch TOPICAL DAILY #30 patch 07/18/23 Allergies Allergy/AdvReac Type Severity Reaction Status Date / Time No Known Allergies Allergy Verified 10/25/23 12:19 Review of Systems ROS Statement: Those systems with pertinent positive or pertinent negative responses have been documented in the HPI. ROS Other: All systems not noted in ROS Statement are negative. Past Medical History Past Medical History: No Reported History Additional Past Surgical History / Comment(s): nasal Past Psychological History: No Psychological Hx Reported Smoking Status: Never smoker Past Alcohol Use History: Rare Past Drug Use History: Marijuana General Exam Limitations: no limitations General appearance: alert, in no apparent distress Respiratory exam: Present: normal lung sounds bilaterally. Absent: respiratory distress, wheezes, rales, rhonchi, stridor Cardiovascular Exam: Present: regular rate, normal rhythm, normal heart sounds. Absent: systolic murmur, diastolic murmur, rubs, gallop, clicks Extremities exam: Present: tenderness (Left medial tibial plateau. Patient has full active range of motion. 2+ left dorsalis pedis and posterior tibialis pulses. Sensation intact. Left lower extremity strength 5+. Positive McMurrys test internal rotation) Neurological exam: Present: alert, oriented X3, CN II-XII intact Skin exam: Present: warm, dry, intact, normal color. Absent: rash Course Vital Signs 10/25/23 10/25/23 12:16 13:21 Temperature 98.0 F 97.9 F Pulse Rate 81 82 Respiratory 18 18 Rate Blood Pressure 160/89 156/76 O2 Sat by Pulse 100 97 Oximetry Medical Decision Making - Medical Decision Making Was pt. sent in by a medical professional or institution (, [facility], E BUSINESS MANAGER, urgent care, hospital, or longterm...) When possible be specific @ -No Did you speak to anyone other than the patient for history (EMS, parent, family, police, friend...)? What history was obtained from this source @ -No Did you review nursing and triage notes (agree or disagree)? Why? @ -I reviewed and agree with nursing and triage notes Were old charts reviewed (outside hosp., previous admission, EMS record, old EKG, old radiological studies, urgent care reports/EKG's, longterm records)? Report findings @ -No old charts were reviewed Differential Diagnosis (chest pain, altered mental status, abdominal pain women, abdominal pain men, vaginal bleeding, weakness, fever, dyspnea, syncope, headache, dizziness, GI bleed, back pain, seizure, CVA, palpatations, mental health, musculoskeletal)? @ -Differential Musculoskeletal: Muscular strain, contusion, ligament sprain, fracture, arthritis, septic arthritis, bursitis, cellulitis, muscle spasm, nerve compression, DVT, arterial occlusion, herpes zoster, electrolyte abnormality, tumor.... This is not meant to be in all inclusive list EKG interpreted by me (3pts min.). @ -None X-rays interpreted by me (1pt min.). @ -Left knee x-ray interpreted by me negative for acute osseous process. CT interpreted by me (1pt min.). @ -None done U/S interpreted by me (1pt. min.). @ -None done What testing was considered but not performed or refused? (CT, X-rays, U/S, labs)? Why? @ -None What meds were considered but not given or refused? Why? @ -None Did you discuss the management of the patient with other professionals (professionals i.e. JOHNNY Louis, E BUSINESS MANAGER, lab, RT, psych nurse, social human services assistants, wide area network engineer, teacher, health promotion officer, field case manager)? Give summary @ -No Was smoking cessation discussed for >3mins.? @ -No Was critical care preformed (if so, how long)? @ -No Were there social determinants of health that impacted care today? How? (Homelessness, low income, unemployed, alcoholism, drug addiction, transportation, low edu. Level, literacy, decrease access to med. care, snf, rehab)? @ -No Was there de-escalation of care discussed even if they declined (Discuss DNR or withdrawal of care, Hospice)? DNR status @ -No What co-morbidities impacted this encounter? (DM, HTN, Smoking, COPD, CAD, Canc er, CVA, ARF, Chemo, Hep., AIDS, mental health diagnosis, sleep apnea, morbid obesity)? @ -None Was patient admitted / discharged? Hospital course, mention meds given and route, prescriptions, significant lab abnormalities, going to OR and other pertinent info. @ -Discharge. 53-year-old male presented to the ER with a chief complaint of left knee pain. History and physical exam completed. Vitals within normal limits. Left lower extremity neurovascular intact. Pain with internal rotation of Samantha's test. Patient received IM Toradol for symptom control in the ER. X-rays negative for acute osseous process. Upon reevaluation, patient resting complaint exam room no signs of acute distress. Patient reporting mild improvement of pain. Pain believed to be from soft tissue injury. Knee immobilizer given. Advise close follow-up with orthopedics, referral given. Conservative treatment options discussed. Return parameters discussed. Patient discharged stable condition with. Patient verbally expressed understanding agree with care plan. Case discussed with the attending, Dr. Callahan. Undiagnosed new problem with uncertain prognosis? @ -No Drug Therapy requiring intensive monitoring for toxicity (Heparin, Nitro, Insulin, Cardizem)? @ -No Were any procedures done? @ -No Diagnosis/symptom? @ -Knee sprain Acute, or Chronic, or Acute on Chronic? @ -Acute Uncomplicated (without systemic symptoms) or Complicated (systemic symptoms)? @ -Uncomplicated Side effects of treatment? @ -No Exacerbation, Progression, or Severe Exacerbation? @ -No Poses a threat to life or bodily function? How? (Chest pain, [place], [place], pneumonia, PE, COPD, DKA, ARF, appy, cholecystitis, CVA, Diverticulitis, Homicidal, Suicidal, threat to staff... and all critical care pts) @ -No - Radiology Data Radiology results: report reviewed, image reviewed Disposition Clinical Impression: Knee sprain Disposition: HOME SELF-CARE Condition: Stable Instructions (If sedation given, give patient instructions): Knee Sprain (ED) Additional Instructions: Follow-up with orthopedics. Return to ER for any new or worsening concerns. Is patient prescribed a controlled substance at d/c from ED?: No Referrals: Bhavin Crump MD [Primary Care Provider] - 1-2 days Rg Bradshaw DO [Doctor of Osteopathic Medicine] - 1-2 days Time of Disposition: 13:18
[2023-10-25] MEDS: KETOROLAC 15 MG/ML 1 ML VIAL IM STA (12:38)
--- NOTE | 2023-10-25 13:09 | XR ---
EXAMINATION TYPE: XR knee complete LT DATE OF EXAM: 10/25/2023 COMPARISON: NONE HISTORY: Pain TECHNIQUE: Three views are submitted. FINDINGS: Joint spaces are preserved. Osseous structures are intact. No acute fracture seen. IMPRESSION: 1. No acute fracture or dislocation.
[2023-10-25 13:23] VITALS: BP 156/76; PULSE 82; TEMP 97.9
== END 2023-10-25 13:45 | disposition home or self-care (01) ==
LOC: EC 12:14
CPT/HCPCS: 96372; 99283